=== PATIENT | female | born 1985 | race Caucasian/White ===

== ENCOUNTER 2016-10-05 12:24 | Emergency (ER) | payer OTHER | END 2016-10-05 13:28 | disposition home or self-care (01) | LOC: ER1 12:24 | DX: G43.909 Migraine, unspecified, not intractable, without status migrainosus (principal); J32.9 Chronic sinusitis, unspecified | CPT/HCPCS: 87081; 87880; 96372; 99284; J0696; J1100 ==

== ENCOUNTER → 2016-10-05 | Outpatient (CLI) | payer OTHER ==
[2016-10-05 13:58] LABS: HEMOGLOBIN 14.6 gm/dl (12.3-15.3); RED BLOOD COUNT 5.16 M/UL (4.00-5.10); WHITE BLOOD COUNT 11.3 K/UL (4.5-11.0)
[2016-10-05 14:26] LABS: BUN/CREATININE RATIO 13 (0-10)
== END ==
LOC: LAB 13:34
PROVIDERS: Nurse Practitioner Family
DX: R53.83 Other fatigue (principal); R51 Headache; R63.5 Abnormal weight gain; R63.1 Polydipsia
CPT/HCPCS: 36415; 80048; 80061; 82607; 83036; 84443; 85027

== ENCOUNTER 2020-10-20 17:54 | Emergency (ER) | payer OTHER ==
[~2020-10-20 17:54] MED LIST: CARAFATE1 GM PO; CLEOCIN 150MG150 MG PO; PEPCID40 MG PO
[2020-10-20 20:03] LABS: HEMOGLOBIN 14.7 gm/dl (12.3-15.3); RED BLOOD COUNT 4.87 M/UL (4.00-5.10); WHITE BLOOD COUNT 11.1 K/UL (4.5-11.0)
[2020-10-20 20:28] LABS: BUN/CREATININE RATIO 13 (0-10)
[2020-10-20] MEDS ORDERED: PROVERA10 MG PO (21:55)
[2020-10-22 22:07] LABS: CHLAMYDIA TRACHOMATIS, NAA Negative (Negative); NEISSERIA GONORRHOEAE, NAA Negative (Negative)
== END 2020-10-20 22:30 | disposition home or self-care (01) ==
LOC: ER1 17:54
PROVIDERS: Emergency Medicine
DX: O20.9 Hemorrhage in early pregnancy, unspecified (principal); Z3A.01 Less than 8 weeks gestation of pregnancy
CPT/HCPCS: 80053; 81001; 84702; 85025; 86850; 86900; 86901; 99284

== ENCOUNTER 2021-11-20 12:47 | Emergency (ER) | payer OTHER ==
[~2021-11-20 12:47] MED LIST changes: +PROVERA10 MG PO; +Voltaren Gel 1 % TOP
== END 2021-11-20 14:42 | disposition home or self-care (01) ==
LOC: ER1 12:47
DX: S63.501A Unspecified sprain of right wrist, initial encounter (principal); S40.012A Contusion of left shoulder, initial encounter; V49.40XA Driver injured in collision with unspecified motor vehicles in traffic accident, initial encounter; Y92.410 Unspecified street and highway as the place of occurrence of the external cause
CPT/HCPCS: 73030; 73130; 99283